=== PATIENT | female | born 1990 | race Caucasian/White ===

== ENCOUNTER 2022-05-11 11:11 | Emergency (ER) | payer MEDICAID ==
[~2022-05-11] VITALS: Ht 160 cm; Wt 95.3 kg
--- NOTE | 2022-05-11 11:14 | NUR ---
BROUGHT BACK TO BED #8 AND TRIAGED. REPORT GIVEN TO MARISOL
[2022-05-11 11:15] VITALS: BP_SYST 126
--- NOTE | 2022-05-11 11:35 | NUR ---
PT WALKS IN TO ROOM 8 FROM HOME FOR C/O INTERMITTENT EPIGASTRIC PAIN FOR 2 WEEKS RADIATING TO RIGHT UPPER QUADRANT 7/10 BURNING SENSATION AT THIS TIME. DENIES ANY NAUSEA/VOMITTING. NO FEVERS, MILD CHILLS. REPORTS SHE IS ABOUT 1 MONTH , LMP 11-22, G-4 P-3. NO VAGINAL PAIN/BLEEDING. SKIN W/D/I. RESP EVEN AND UNLABORED. WAITING FOR ER MD DURAN.
--- NOTE | 2022-05-11 11:39 | NUR ---
DR HAMMER AT BEDSIDE FOR EXAM
[2022-05-11] MEDS ORDERED: NACL 0.9% 1,000 ML IV ONE (11:45)
[2022-05-11] MEDS ORDERED: MORPHINE 4 MG INJ. 4 MG/ML VIAL IVP ONE ×2 (11:45→15:15)
[2022-05-11 12:10] LABS: BILIRUBIN,URINE NEGATIVE (NEGATIVE); BLOOD, URINE NEGATIVE (NEGATIVE); COLOR,URINE YELLOW (YELLOW); GLUCOSE,URINE NEGATIVE (NEGATIVE); KETONES,URINE NEGATIVE (NEGATIVE); LEUKOCYTE ESTERASE ,URINE NEGATIVE (NEGATIVE); NITRITE, URINE NEGATIVE (NEGATIVE); PH,URINE 6.5 (5.0-8.0); PROTEIN URINE NEGATIVE (NEGATIVE); UROBILINOGEN,URINE 0.2 (0.2-1.0)
[2022-05-11 12:12] LABS: CLARITY/URINE CLEAR (CLEAR)
[2022-05-11 12:25] LABS: CALCIUM 9.2 mg/dL (8.4-11.0); CREATININE 0.69 mg/dL (0.55-1.30)
--- NOTE | 2022-05-11 12:30 | NUR ---
PT IV SITE ON LAC, FLUIDS STARTED AND MEDICATED WITH MORPHINE 4MG. PT VITALS BEFORE MORPHINE IS 125/66MMHG 99%SPO2 66HR 20RR.
[2022-05-11 12:33] LABS: BASOPHILS # (AUTO) 0.1 K/uL (0.0-0.2); BASOPHILS % (AUTO) 0.6 % (0.0-2.0); EOSINOPHILS # (AUTO) 0.1 K/uL (0.0-0.4); EOSINOPHILS % (AUTO) 1.3 % (0.0-4.0); HEMOGLOBIN 12.2 g/dL (12.0-16.0); LYMPHOCYTES # (AUTO) 1.7 K/uL (1.0-5.5); LYMPHOCYTES % (AUTO) 16.5 % (20.5-51.5); MEAN CORPUSCULAR HEMOGLOBIN 30 pg (27-31); MEAN CORPUSCULAR HGB CONC 33 % (32-36); MEAN CORPUSCULAR VOLUME 90 fL (79.0-98.0); MONOCYTES # (AUTO) 0.6 K/uL (0.0-1.0); MONOCYTES % (AUTO) 6.2 % (1.7-9.3); NEUTROPHILS # (AUTO) 7.6 K/uL (1.8-7.7); NEUTROPHILS % (AUTO) 75.4 % (40.0-70.0); PLATELET COUNT (AUTO) 217 K/uL (130-430); RED BLOOD CELL COUNT(AUTO) 4.12 MIL/uL (4.2-6.2); RED CELL DISTRIBUTION WIDTH 14.2 % (9.0-15.0); WHITE BLOOD COUNT (AUTO) 10.1 K/uL (4.8-10.8)
[2022-05-11 12:53] LABS: ALBUMIN 3.6 g/dL (3.4-4.8); TOTAL BILIRUBIN 0.3 mg/dL (0.0-1.0)
--- NOTE | 2022-05-11 14:11 | NUR ---
pt voices no complaint and does not have pain. vss, pt resting in [facility], fluids finished. will continue to monitor.
[2022-05-11] MEDS ORDERED: ACET325T PO (15:07)
[2022-05-11] MEDS ORDERED: ONDANSETRON HCL 4 MG/2 ML VIAL IVP ONE (15:15)
[2022-05-11 15:39] VITALS: BP_SYST 122
--- NOTE | 2022-05-11 15:46 | NUR ---
Patient given written and verbal discharge instructions and verbalizes understanding. ER MD discussed with patient the results and treatment provided. Patient in stable condition. ID arm band removed. IV catheter removed intact and dressing applied, no active bleeding. Rx of TYELNOL given. Patient educated on pain management and to follow up with PMD. Pain Scale . Opportunity for questions provided and answered. Medication side effect fact sheet provided.
== END 2022-05-11 15:46 | disposition home or self-care (01) ==
LOC: SED 11:11
DX: O99.611 Diseases of the digestive system complicating pregnancy, first trimester (principal); O26.891 Other specified pregnancy related conditions, first trimester; Z3A.01 Less than 8 weeks gestation of pregnancy
CPT/HCPCS: 99284; 96374; 76705; 76801; 96361; 96375; 80053; 84702; 83690; 85025; 36415; 96376; 81025; 81003; J2405; J2270; J7030